=== PATIENT | female | born 1980 | race African-American/Black ===

== ENCOUNTER 2017-09-07 17:10 | Emergency (ER) | payer MEDICARE, MEDICAID ==
--- NOTE | 2017-09-07 20:08 | RAD ---
EXAM: CHEST TWO VIEWS 09/07/17 HISTORY: Dyspnea. COMPARISON: None. FINDINGS: Two views chest: Normal cardiac silhouette. The pulmonary vessels and hilum are normal. Costophrenic angles are clear. No mass. No consolidation. No pneumothorax or osseous abnormalities. IMPRESSION: No acute cardiopulmonary process. POS: [facility]
== END 2017-09-07 19:49 | disposition left against medical advice (07) ==
LOC: ERS 17:10
DX: R06.02 Shortness of breath (principal); R05 Cough; J45.909 Unspecified asthma, uncomplicated; Z79.899 Other long term (current) drug therapy; Z79.01 Long term (current) use of anticoagulants
CPT/HCPCS: 71020; 99284

== ENCOUNTER 2018-06-13 21:31 | Observation (INO) | payer MEDICARE, MEDICAID ==
[~2018-06-13 21:31] MED LIST: ISOVUE-370 76%-LOCM 1 ML ONE
[2018-06-13 22:10] LABS: #Basophils 0.1 thou/uL (0.0-0.2); #Eosinphils 0.2 thou/uL (0.0-0.7); #Monocytes 0.5 thou/uL (0.11-0.59); %Basophils 0.8 % (0.0-1.0); %Eosinophils 1.6 % (0.0-10.0); %Lymphocytes 40.8 % (21.0-51.0); %Monocytes 5.2 % (0.0-10.0); %Neutrophils 51.6 % (42.0-75.0); Hemoglobin 12.4 g/dL (12.0-16.0); Mean Corpuscular HGB CONC 34.7 g/dL (32.0-36.0); Mean Corpuscular Hemoglobin 31.3 pg (27.0-31.0); Mean Corpuscular Volume 90.2 fL (78.0-98.0); Mean Platelet Volume 6.7 fL (7.4-10.4); Platelet Count 584 thou/uL (130-400); RBC Distribution Width 14.6 % (11.5-14.5); Red Blood Cell (RBC) Count 3.96 mill/uL (4.20-5.40); White Blood Cell (WBC) Count 9.7 thou/uL (4.8-10.8)
[2018-06-13 22:37] LABS: ALT (SGPT) 21 U/L (8-55); AST (SGOT) 22 U/L (5-34); Alkaline Phosphatase 84 U/L (40-150); Anion Gap 13 mmol/L (10-20); BUN (Urea Nitrogen) 4 mg/dL (7.0-18.7); Bilirubin, Total 0.5 mg/dL (0.2-1.2); Calc. Creatinine Clearance 0 mL/min (70-130); Calcium 9.3 mg/dL (7.8-10.44); Carbon Dioxide 26 mmol/L (22-29); Chloride 102 mmol/L (98-107); Estimated GFR-MDRD 90; Globulin 3.7 g/dL (2.4-3.5); Glucose 113 mg/dL (70-105); Potassium 3.3 mmol/L (3.5-5.1); Protein, Total 7.7 g/dL (6.0-8.3); Sodium 138 mmol/L (136-145)
[2018-06-13 22:41] LABS: CKMB 0.4 ng/mL (0-6.6); Troponin I Less than 0.010 ng/mL (< 0.028)
--- NOTE | 2018-06-13 22:59 | RAD ---
SINGLE VIEW CHEST: HISTORY: Shortness of breath. History of DVT and pulmonary embolism. COMPARISON: 12/01/2014 FINDINGS: Single view of the chest show normal sized cardiomediastinal silhouette. There is no evidence of cons olidation, mass, or pleural effusion. The bones are unremarkable. IMPRESSION: No evidence of acute cardiopulmonary disease. POS: [facility]
[2018-06-13] MEDS ORDERED: Morphine 4 MG/ML VIAL ONE (23:52)
[2018-06-14] MEDS ORDERED: HYDROcodone/Acetaminophen 5/325 mg Tablet ONE ×2 (02:36→09:12)
[2018-06-14] MEDS ORDERED: Nitroglycerin 0.4 MG TAB (25 Tab Bottle) ONE (02:37)
[2018-06-14 03:21] LABS: Troponin I Less than 0.010 ng/mL (< 0.028)
[2018-06-14] MEDS ORDERED: Acetaminophen 325 MG TAB PO PRN (03:51)
[2018-06-14] MEDS ORDERED: Ondansetron HCl/PF 4 MG/2 ML Vial IVP PRN (03:51)
[2018-06-14] MEDS ORDERED: Ondansetron ODT 4 MG TAB SL PRN (03:51)
[2018-06-14 03:54] VITALS: BMI 51.9
[2018-06-14 06:05] LABS: Troponin I Less than 0.010 ng/mL (< 0.028)
[2018-06-14] MEDS ORDERED: Enoxaparin Sodium 30 MG/0.3 ML SYRINGE ONE (09:12)
[2018-06-14] MEDS ORDERED: Enoxaparin Sodium 120 MG/0.8 ML SYRINGE SC ONE (09:12)
[2018-06-14] MEDS: Citalopram 20 MG TAB PO SCH (09:30)
[2018-06-14] MEDS ORDERED: Aspirin 325 MG TAB ONE (10:10)
[2018-06-14] MEDS ORDERED: HYDROcodone/Acetaminophen 5/325 mg Tablet PO PRN ×2 (10:51→11:18)
[2018-06-14] MEDS ORDERED: Enoxaparin Sodium 80 MG/0.8 ML SYRINGE SC SCH (11:00)
--- NOTE | 2018-06-14 11:23 | HP ---
PRIMARY CARE PROVIDER: None. CHIEF COMPLAINT: Chest pain. HISTORY OF PRESENT ILLNESS: Ms. Bruno is a pleasant 38-year-old lady who was seen at [facility] on 06/14/2018. Please note that the computer systems are down at this point. I am only able to access some of the l abs. Ms. Bruno reports that she has been having chest pain over her right lower chest. She describes it as a band-like, over her lower chest and upper abdomen, accompanied by abdominal distention over the last 4 days. She reports that the pain is worse with deep breathing, exertion as well as with eating . She reports having similar pain when she had a pulmonary embolism in the past. The pain itself is a pressure-like sensation, 4-5/10. She denies any nausea, vomiting or diarrhea. REVIEW OF SYSTEMS: All other systems reviewed and found to be negative. PAST MEDICAL HISTORY: Significant for asthma; pulmonary embolism; noncancerous stomach mass, status post surgery; small benign renal mass, status post embolization; deep vein thrombosis which was unpro voked. PAST SURGICAL HISTORY: Significant for hysterectomy and IVC filter placement. PSYCHIATRIC HISTORY: Anxiety. SOCIAL HISTORY: No history of tobacco use, alcohol use or recreational drug use. FAMILY HISTORY: Significant for coronary artery disease. ALLERGIES: PENICILLIN. CURRENT MEDICATIONS: Lovenox 150 mg subcutaneously 2 times a day, she reports that her pulmonary emb olism specialist was thinking about increasing the dose, citalopram 20 mg daily, amitriptyline 75 mg at bedtime, and albuterol inhaler p.r.n. PHYSICAL EXAMINATION: GENERAL: Ms. Bruno is awake and alert, not in acute distress. She is obese. VITAL SIGNS: Blood pressure is 137/66, pulse 70, respiratory 20, and oxygen saturation 96% on room a ir. She is afebrile. EYES: No scleral icterus. No conjunctival pallor. ENT: Moist mucosal membranes, no oropharyngeal erythema or exudates. NECK: Supple, nontender, trachea is midline. RESPIRATORY: Accessory muscles of breathing are not active. Chest wall movements are symmetric bila terally. LUNGS: Clear to auscultation without wheeze, rhonchi or crepitations. CARDIOVASCULAR: S1 and S2 are heard, regular. Peripheral pulses palpable. No carotid bruit, no per icardial rub. ABDOMEN: Soft, distended, mild right upper quadrant tenderness, no guarding or rigidity, bowel sound s heard, no hepatomegaly, no splenomegaly. Dunbar's sign is negative. NEUROLOGIC: Cranial nerves II through XII intact. Deep tendon reflexes are 2+. MUSCULOSKELETAL: Power is 5/5 in all 4 extremities. LYMPHATIC: No cervical lymphadenopathy. PSYCHIATRIC: Normal mood, normal affect, patient is oriented to person, place, and time. LABORATORY DATA: Ms. Bruno's labs and investigations were reviewed. She had right upper quadrant u ltrasound, which showed minimal gallbladder sludge, but no visible calculi and a negative sonographic Dunbar's sign. She also had a CT angiography of the chest which showed a very small left pleural ef fusion. There was minimal IV contrast opacification of the pulmonary arteries and therefore nondiagn ostic evaluation for acute pulmonary embolism. She has a normal sodium, normal potassium, normal cre atinine, normal total bilirubin, normal alkaline phosphatase, normal AST and normal ALT. ASSESSMENT AND PLAN: Ms. Bruno is a pleasant 38-year-old lady who was seen at [facility] on 06/14/2018. Her problem list includes: 1. Chest pain: Differential diagnosis remains wide and includes pulmonary etiology as well as a car diac etiology and upper abdominal etiology. She will be admitted to the hospital for telemetry monit oring. I will obtain a nuclear stress test. If this is negative, consideration may be given to repe ating a CT angiogram to rule out pulmonary embolism. She is already on treatment for pulmonary embol ism at this time with therapeutic Lovenox dose, which is why I am opting to do nuclear stress test fi rst. 2. Asthma: Appears to be stable. 3. History of pulmonary embolism: Continue Lovenox at a therapeutic dose. 4. History of anxiety: Continue citalopram and amitriptyline. LEVEL OF RISK: Moderate. LEVEL OF COMPLEXITY: Moderate.
--- NOTE | 2018-06-14 11:37 | ULT ---
PRELIMINARY REPORT/[facility]/EMERGENTY AFTER-HOURS PROCEDURE US Abdomen Limited, Right Upper Quadrant EXAM DATE/TIME: 06/14/2018 12:03 AM CLINICAL HISTORY: 38 years old, female; Pain; Abdominal pain; Localized; Right upper quadrant (ruq) TECHNIQUE: Real-time ultrasound of the abdomen with image documentation. Examination is focused on the right upper quadrant. COMPARISON: No relevant prior studies available. FINDINGS: Liver: The hepatic parenchyma is echogenic consistent with diffuse fatty liver and there is hepatomeg elise with liver length 22.4 cm. Gallbladder: There is minimal gallbladder sludge but no visible calculi, no abnormal gallbladder wall thickening and negative sonographic Dunbar sign. Common bile duct: Normal. No stones. No dilation. Pancreas: The pancreas is partially obscured by overlying bowel gas. Right kidney: Normal. No mass. No hydronephrosis. IMPRESSION: No acute sonographic pathology. Thank you for allowing us to participate in the care of your patient. Dictated and Authenticated by: Anuel Seth MD 06/14/2018 1:29 AM Central Time (US & En) FINAL REPORT GALLBLADDER ULTRASOUND: HISTORY: Right upper quadrant pain. COMPARISON: None. TECHNIQUE: Utilizing a Multi-Hertz transducer, sonographic imaging of the right upper quadrant is performed in t he longitudinal and transverse plane. FINDINGS: There is increased echogenicity of the liver, likely due to hepatic steatosis or hepatocellular disea se. There is mild hepatomegaly. There is sludge in the gallbladder. No sonographic evidence of cho lelithiasis or cholecystitis. This report is in agreement with the preliminary report by [facility]. POS: [facility]
--- NOTE | 2018-06-14 11:48 | CT ---
PRELIMINARY REPORT/[facility]/EMERGENTY AFTER-HOURS PROCEDURE CT Angiography Chest With Intravenous Contrast EXAM DATE/TIME: 06/14/2018 12:24 AM CLINICAL HISTORY: 38 years old, female; Pain; Chest pain; Patient HX: Er 1; PT reports SOB. Reports HX of dvt that ashley eled/pe. January 2017. Ivc filter in lungs TECHNIQUE: Axial computed tomographic angiography images of the chest with intravenous contrast using CT angiogr aphy protocol. Coronal reformatted images were created and reviewed. MIP reconstructed images were created and reviewed. COMPARISON: No relevant prior studies available. FINDINGS: Pulmonary arteries: There is minimal IV contrast opacification of the pulmonary arteries and therefor e nondiagnostic evaluation for acute pulmonary embolism. Aorta: Normal. No aortic aneurysm. No aortic dissection. Lungs: There is mild bibasilar atelectatic change or scarring. Pleural space: There is a very small left pleural effusion. Heart: Normal. No cardiomegaly. No pericardial effusion. Bones/joints: There are mild degenerative changes of the spine. Soft tissues: Unremarkable. Lymph nodes: Unremarkable. No enlarged lymph nodes. IMPRESSION: 1. There is a very small left pleural effusion. 2. There is minimal IV contrast opacification of the pulmonary arteries and therefore nondiagnostic e valuation for acute pulmonary embolism. Thank you for allowing us to participate in the care of your patient. Dictated and Authenticated by: Anuel Seth MD 06/14/2018 1:27 AM Central Time (US & En) EMERGENT AFTER HOURS CT ANGIOGRAM THORAX WITH IV CONTRAST AND 3D RECONSTRUCTION: 06/14/2018 HISTORY: Shortness of breath and chest pain. History of prior DVT. COMPARISON: None available. IMPRESSION: 1. Suboptimal opacification of the pulmonary arteries, related to suboptimal timing of the contrast bolus. As a result, pulmonary embolus cannot be excluded based on this examination. 2. The thoracic aorta is normal in caliber without evidence of an aortic dissection. 3. Very small left pleural effusion. 4. Pleural-based nodular density along the minor fissure on the right, measuring approximately 4 to 5 mm, likely related to a small focal area of nodular pleural thickening. There is a tiny, less than 5 mm, pleural based, nodular density at the anterior aspect of the left upper lobe. There is a smal l pulmonary nodule at the lateral aspect of the left upper lobe, measuring 4 mm. 5. There is linear atelectasis versus scarring at the left lung base. The findings are in agreement with the preliminary report by [facility]. POS: [facility]
[2018-06-14 15:04] LABS: #Eosinphils 0.2 thou/uL (0.0-0.7); #Lymphocytes 3.2 thou/uL (1.20-3.40); #Monocytes 0.4 thou/uL (0.11-0.59); #Neutrophils 4.4 thou/uL (1.40-6.50); %Basophils 0.5 % (0.0-1.0); %Eosinophils 2.6 % (0.0-10.0); %Lymphocytes 38.9 % (21.0-51.0); %Neutrophils 53.1 % (42.0-75.0); Hemoglobin 12.1 g/dL (12.0-16.0); Mean Corpuscular HGB CONC 33.1 g/dL (32.0-36.0); Mean Corpuscular Volume 90.4 fL (78.0-98.0); Mean Platelet Volume 6.4 fL (7.4-10.4); Platelet Count 560 thou/uL (130-400); RBC Distribution Width 14.6 % (11.5-14.5); Red Blood Cell (RBC) Count 4.05 mill/uL (4.20-5.40); White Blood Cell (WBC) Count 8.2 thou/uL (4.8-10.8)
--- NOTE | 2018-06-14 15:15 | NM ---
RADIONUCLIDE STRESS ONLY MYOCARDIAL PERFUSION SCAN WITH CT ATTENUATION CORRECTION AND SPECT IMAGING W ITH LEFT VENTRICULAR WALL MOTION EVALUATION AND EJECTION FRACTION: HISTORY: Chest pain. FINDINGS: Lexiscan protocol. Heterogeneous uptake of radiotracer throughout the left ventricular myocardium. No focal perfusion de fect is apparent. QGS analysis of gated SPECT images shows no focal wall motion abnormalities. Ejection fraction is niyah culated at 65%. IMPRESSION: 1. Normal myocardial perfusion stress only exam. 2. Normal LVEF. POS: [facility]
[2018-06-14] MEDS ORDERED: Regadenoson 0.4 MG/5 ML SYRINGE ONE (15:21)
[2018-06-14 15:24] LABS: Anion Gap 12 mmol/L (10-20); BUN (Urea Nitrogen) 5 mg/dL (7.0-18.7); Calc. Creatinine Clearance 209 mL/min (70-130); Calcium 9.1 mg/dL (7.8-10.44); Carbon Dioxide 26 mmol/L (22-29); Chloride 106 mmol/L (98-107); Estimated GFR-MDRD Greater than 90; Glucose 137 mg/dL (70-105); Potassium 3.5 mmol/L (3.5-5.1); Sodium 140 mmol/L (136-145)
[2018-06-14] MEDS: Sodium Chloride 0.9% 1,000 ML IV SCH (16:23)
[2018-06-14 17:32] LABS: Hemoglobin 12.1 g/dL (12.0-16.0); Platelet Count 538 thou/uL (130-400)
[2018-06-14 17:53] LABS: Calc. Creatinine Clearance 223 mL/min (70-130); Estimated GFR-MDRD Greater than 90
[2018-06-14] MEDS: Enoxaparin Sodium 80 MG/0.8 ML SYRINGE SC SCH (20:22)
[2018-06-14] MEDS ORDERED: Enoxaparin Sodium 100 MG/ML SYRINGE SC SCH (21:00)
[2018-06-14] MEDS ORDERED: Enoxaparin Sodium 60 MG/0.6 ML SYRINGE SC SCH (21:00)
[2018-06-14] MEDS ORDERED: Amitriptyline HCl 25 MG TAB PO SCH (21:00)
[2018-06-15] MEDS: Sodium Chloride 0.9% 1,000 ML IV SCH (03:49)
[2018-06-15 04:52] LABS: Anion Gap 11 mmol/L (10-20); BUN (Urea Nitrogen) 5 mg/dL (7.0-18.7); Calc. Creatinine Clearance 207 mL/min (70-130); Calcium 8.5 mg/dL (7.8-10.44); Carbon Dioxide 27 mmol/L (22-29); Chloride 108 mmol/L (98-107); Estimated GFR-MDRD Greater than 90; Glucose 135 mg/dL (70-105); Potassium 3.9 mmol/L (3.5-5.1); Sodium 142 mmol/L (136-145)
[2018-06-15 05:23] LABS: Band 3 % (5-11); Eosinophils 3 % (0-10); Hemoglobin 11.9 g/dL (12.0-16.0); Lymphocytes 38 % (21-51); MDiff Complete? YES; Mean Corpuscular HGB CONC 34.3 g/dL (32.0-36.0); Mean Corpuscular Hemoglobin 30.7 pg (27.0-31.0); Mean Corpuscular Volume 89.7 fL (78.0-98.0); Mean Platelet Volume 6.7 fL (7.4-10.4); Monocytes 6 % (0-10); Neutrophil 50 % (42-75); PLT Morphology Comment Appears Increased; Platelet Count 472 thou/uL (130-400); RBC Distribution Width 14.4 % (11.5-14.5); Red Blood Cell (RBC) Count 3.88 mill/uL (4.20-5.40); White Blood Cell (WBC) Count 7.6 thou/uL (4.8-10.8)
[2018-06-15 08:09] VITALS: BP 123/69; TEMP 97.8
[2018-06-15] MEDS ORDERED: Citalopram 20 MG TAB PO SCH (09:00)
[2018-06-15] MEDS ORDERED: Aspirin 325 MG TAB PO SCH ×2 (09:00)
[2018-06-15] MEDS: Citalopram 20 MG TAB PO SCH (09:36)
[2018-06-15] MEDS: Enoxaparin Sodium 80 MG/0.8 ML SYRINGE SC SCH (09:36)
--- NOTE | 2018-06-15 14:09 | DIS ---
DISCHARGE DISPOSITION: Home. FOLLOWUP: 1. Follow up with primary oncologist, Dr. Hesham Glass today at 1:00 p.m. 2. Follow up with primary care physician at [facility], Dr. Alcala in 1 week. ALLERGIES: The patient is allergic to PENICILLIN. DISCHARGE MEDICATIONS: Same as admission medications: 1. Lovenox 150 mg twice a day. 2. Albuterol inhaler as needed. BRIEF HOSPITAL COURSE: The patient is a 38-year-old female with recurrent pulmonary embolism on anti coagulation, who presented to the emergency room with chest discomfort. Please refer to the history and physical for further details. The patient was admitted to the hospital with a diagnosis of chest discomfort, rule out acute coronar y syndrome. Serial troponins remained negative. She underwent a Cardiolite stress test that was neg ative. There were no wall motion abnormalities. Ejection fraction was 65%. CT angiogram of the obdulia st was attempted; however, due to poor contrast bolus timing, it was suboptimal. Due to lack of IV a ccess this could not be done today. She will continue Lovenox. She will see her primary oncologist later today to make a decision whether the patient needs a CTA or not. She is on full dose Lovenox. Chest x-ray was negative. She also underwent abdominal ultrasound that was negative for acute findi ngs. There was no gallbladder wall thickening. There was minimal gallbladder sludge without any vis ible calculi. Plan of care was discussed with the patient in detail. She stated understanding. DISCHARGE DIAGNOSES: 1. Atypical chest discomfort, probably musculoskeletal. 2. Negative Cardiolite stress test. 3. History of pulmonary embolism on full dose anticoagulation. 4. Mild intermittent asthma. 5. Morbid obesity with a BMI 51.9. 6. Hypokalemia, corrected. 7. PENICILLIN allergy. The patient was seen and examined on the day of discharge.
--- NOTE | 2018-06-24 09:28 | STRESS ---
Acquisition Time: 2018-06-14 12:20:28 Total Exercise Time: 00:01:00 Test Indications: CHEST PAIN Medications: Protocol: LEXISCAN Max HR: 116 BPM 64% of Pred: 181 BPM Max BP: 132/074 mmHG Max Work Load: 1.0 METS THE PATIENT WAS INJECTED WITH LEXISCAN. SHE DID NOT DEVELOP CHEST PAIN. THERE WAS NO SIGNIFICANT ST DEPRESSION. AWAIT NUCLEAR IMAGES FOR DEFINITIVE DIAGNOSIS. Confirmed by CATRACHO MARTINEZ ([id number]), staff editor TJ MCNAIR ([id number]) on 06/24/2018 9:28:31 AM Referred By: MD Mariana MATHEWS Confirmed By:CATRACHO MARTINEZ
== END 2018-06-15 10:46 | disposition home or self-care (01) ==
LOC: ERS 21:31 → 2SW 06-14 03:45
PROVIDERS: ADMIT Internal Medicine; ATTEND Internal Medicine
DX: R07.89 Other chest pain (principal); Z86.711 Personal history of pulmonary embolism; J45.20 Mild intermittent asthma, uncomplicated; E66.01 Morbid (severe) obesity due to excess calories; Z68.43 Body mass index [BMI] 50.0-59.9, adult; E87.6 Hypokalemia; Z88.0 Allergy status to penicillin; Z79.899 Other long term (current) drug therapy
CPT/HCPCS: 71045; 71275; 76705; 78452; 80048 ×2; 80053; 82553; 82565; 84484 ×3; 85014; 85018; 85025 ×3; 85049; 93005; 93017; 94760; 96361 ×3; 96372 ×2; 96374; 99285; G0378 ×2; 36415; A4216; J1650; J2270; J2785; Q0162

== ENCOUNTER 2018-06-28 16:12 | Emergency (ER) | payer MEDICARE, MEDICAID ==
[2018-06-28] MEDS ORDERED: diphenhydrAMINE 12.5 MG/5 ML UDCUP ONE ×2 (17:51→17:57)
[2018-06-28] MEDS ORDERED: Metoclopramide HCl 10 MG/2 ML VIAL ONE (17:51)
--- NOTE | 2018-06-28 18:23 | CT ---
NONCONTRAST HEAD CT: 06/28/18 HISTORY: Headache. Patient denies past medical history of migraine headaches. COMPARISON: None. FINDINGS: No parenchymal hemorrhage. No extra-axial hematoma. No midline shift. Basilar cisterns are patent. Br ain volume, age appropriate. Cortical morales-white matter differentiation is preserved. Ventricles and sulci are patent and symmetric. Note is made of a cavum septum pellucidum. Calvarium is intact. Adequate aeration of the sinuses and mastoid air cells. IMPRESSION: No acute intracranial process. POS: [facility]
[2018-06-28] MEDS ORDERED: Acetaminophen 500 MG TAB ONE (18:37)
== END 2018-06-28 19:18 | disposition home or self-care (01) ==
LOC: ERS 16:12
DX: R51 Headache (principal); F41.9 Anxiety disorder, unspecified; J45.909 Unspecified asthma, uncomplicated; Z86.711 Personal history of pulmonary embolism; Z79.899 Other long term (current) drug therapy
CPT/HCPCS: 70450; 96365; J2765

== ENCOUNTER 2018-08-21 16:28 | Emergency (ER) | payer MEDICARE, MEDICAID | END 2018-08-21 17:00 | disposition home or self-care (01) | LOC: ERS 16:28 | DX: S60.562A Insect bite (nonvenomous) of left hand, initial encounter (principal); S60.561A Insect bite (nonvenomous) of right hand, initial encounter; I10 Essential (primary) hypertension; J45.909 Unspecified asthma, uncomplicated; G43.909 Migraine, unspecified, not intractable, without status migrainosus; F41.9 Anxiety disorder, unspecified; W57.XXXA Bitten or stung by nonvenomous insect and other nonvenomous arthropods, initial encounter | CPT/HCPCS: 99282 ==

== ENCOUNTER 2018-08-23 03:26 | Emergency (ER) | payer MEDICARE, MEDICAID ==
[2018-08-23 05:05] LABS: BHCG - Serum Negative (NEGATIVE); Pregs Control Background? CLEAR/WHITE (CLR/WHITE); Pregs Control Bar Appear? YES (CONTROL BAR)
[2018-08-23 05:11] LABS: Hemoglobin 12.6 g/dL (12.0-16.0); Mean Corpuscular HGB CONC 32.1 g/dL (32.0-36.0); Mean Corpuscular Hemoglobin 29.5 pg (27.0-31.0); Mean Corpuscular Volume 92.1 fL (78.0-98.0); Mean Platelet Volume 6.7 fL (7.4-10.4); Platelet Count 600 thou/uL (130-400); RBC Distribution Width 14.6 % (11.5-14.5); Red Blood Cell (RBC) Count 4.25 mill/uL (4.20-5.40); White Blood Cell (WBC) Count 11.5 thou/uL (4.8-10.8)
[2018-08-23 05:15] LABS: ALT (SGPT) 18 U/L (8-55); AST (SGOT) 18 U/L (5-34); Albumin 4.1 g/dL (3.5-5.0); Alkaline Phosphatase 84 U/L (40-150); Anion Gap 15 mmol/L (10-20); BUN (Urea Nitrogen) 5 mg/dL (7.0-18.7); Bilirubin, Total 0.6 mg/dL (0.2-1.2); CK (CPK) 96 U/L (29-168); Calc. Creatinine Clearance 0 mL/min (70-130); Calcium 9.6 mg/dL (7.8-10.44); Carbon Dioxide 27 mmol/L (22-29); Chloride 101 mmol/L (98-107); Estimated GFR-MDRD 82; Globulin 4.1 g/dL (2.4-3.5); Glucose 128 mg/dL (70-105); Potassium 4.1 mmol/L (3.5-5.1); Protein, Total 8.2 g/dL (6.0-8.3); Sodium 139 mmol/L (136-145)
[2018-08-23 05:18] LABS: CKMB 0.4 ng/mL (0-6.6); Troponin I Less than 0.010 ng/mL (< 0.028)
[2018-08-23 05:32] LABS: Eosinophils 2 % (0-10); Lymphocytes 41 % (21-51); MDiff Complete? YES; Metamyelocyte 1 % (0-0); Monocytes 5 % (0-10); Neutrophil 51 % (42-75); PLT Morphology Comment Appears Increased
--- NOTE | 2018-08-23 08:16 | CT ---
PRELIMINARY REPORT/[facility]/EMERGENTY AFTER-HOURS PROCEDURE CT Angiography Chest With Intravenous Contrast EXAM DATE/TIME: 08/23/2018 5:12 AM CLINICAL HISTORY: 38 years old, female; Signs and symptoms; Cough; Patient HX: 38 yo f presents to ed with fever. PT re ports fever of 102 for the past 3 days at home, with associated cough, green sputum, chills, and gene ral malaise. PT reports she is currently on an anticoagulant, PT has HX of pes while on anticoagulants. TECHNIQUE: Axial computed tomographic angiography images of the chest with intravenous contrast using CT angiogr aphy protocol. Coronal reformatted images were created and reviewed. MIP reconstructed images were created and reviewed. COMPARISON: No relevant prior studies available. FINDINGS: Pulmonary arteries: The pulmonary arteries are not enlarged. No evidence of acute pulmonary embolus. Aorta: The aorta is normal. Lungs: There is LEFT basilar atelectasis. Pleural space: Normal. No pneumothorax. No pleural effusion. Heart: The cardiac structures are normal. Thyroid: The visualized thyroid gland is unremarkable. Bones/joints: Unremarkable. No acute fracture. Soft tissues: Unremarkable. Lymph nodes: Unremarkable. No enlarged lymph nodes. IMPRESSION: No acute thoracic pathology. Mild LEFT basilar atelectasis. No CT evidence for acute pulmonary embolus. Thank you for allowing us to participate in the care of your patient. Dictated and Authenticated by: Mark Cornell MD 08/23/2018 5:26 AM Central Time (US & En) FINAL REPORT CT PULMONARY ANGIOGRAM WITH IV CONTRAST AND 3D POSTPROCESSING: I agree with the preliminary report given by Dr. Mark Cornell. POS: [facility]
[2018-08-23] MEDS ORDERED: ISOVUE-370 76%-LOCM 1 ML ONE (11:41)
== END 2018-08-23 05:30 | disposition home or self-care (01) ==
LOC: ERS 03:26
DX: J40 Bronchitis, not specified as acute or chronic (principal); G43.909 Migraine, unspecified, not intractable, without status migrainosus; F41.9 Anxiety disorder, unspecified; I10 Essential (primary) hypertension; Z79.899 Other long term (current) drug therapy; Z86.711 Personal history of pulmonary embolism
CPT/HCPCS: 71275; 80053; 82553; 84484; 84703; 85025; 87804; 93005

== ENCOUNTER 2018-11-17 13:11 | Emergency (ER) | payer MEDICARE, MEDICAID ==
[2018-11-17] MEDS ORDERED: Ondansetron ODT 4 MG TAB ONE (13:49)
[2018-11-17] MEDS ORDERED: Dexamethasone 4 mg/ml Vial ONE (13:59)
[2018-11-17] MEDS ORDERED: Ibuprofen 200 MG TAB ONE (13:59)
== END 2018-11-17 15:00 | disposition home or self-care (01) ==
LOC: ERS 13:11
DX: J11.1 Influenza due to unidentified influenza virus with other respiratory manifestations (principal); J45.901 Unspecified asthma with (acute) exacerbation; R11.2 Nausea with vomiting, unspecified; I10 Essential (primary) hypertension; G43.909 Migraine, unspecified, not intractable, without status migrainosus; F41.9 Anxiety disorder, unspecified; Z86.711 Personal history of pulmonary embolism; Z79.899 Other long term (current) drug therapy; Z79.51 Long term (current) use of inhaled steroids
CPT/HCPCS: 94640; J1100; J7620; Q0162

== ENCOUNTER 2019-01-21 01:15 | Emergency (ER) | payer MEDICARE, MEDICAID ==
--- NOTE | 2019-01-21 08:37 | ULT ---
PRELIMINARY REPORT: US Duplex Left Lower Extremity Veins, Limited EXAM DATE/TIME: 01/21/2019 2:30 AM CLINICAL HISTORY: 38 years old, female; Other: Lle pain, swelling x 1mo- per PT. TECHNIQUE: Imaging protocol: Real-time Duplex ultrasound of the Left Lower Extremity with 2-D morales scale, color Doppler flow and spectral waveform analysis. Limited exam focused on the left lower extremity veins. COMPARISON: No relevant prior studies available. FINDINGS: Left deep veins: Unremarkable. The common femoral, femoral, proximal profunda femoral and popliteal veins are patent without thrombus. Normal Doppler waveforms. Normal compressibility and/or augmentation response. Left superficial veins: Unremarkable. Saphenofemoral junction is patent without thrombus. Soft tissues: At the site of palpable abnormality in the mid thigh there is a 1.4 cm avascular hypoechoic structure/collection which is most likely a hematoma or abscess. IMPRESSION: 1. No DVT. 2. At the site of palpable abnormality in the mid thigh there is a 1.4 cm avascular hypoechoic structure/collection which is most likely a hematoma or abscess. Thank you for allowing us to participate in the care of your patient. Dictated and Authenticated by: Sundar Hardin MD 01/21/2019 3:07 AM Central Time (US & En) Emergency after-hours left lower extremity venous Doppler with spectral analysis and color flow evalu ation: HISTORY: Left lower extremity pain. History of prior pulmonary embolus and DVT. Swelling left lower e xtremity. IMPRESSION: 1. No evidence of a DVT involving the visualized deep venous structures left lower extremity. 2. At site of patient's palpable abnormality at the level of the mid thigh, there is a 1.4 cm hypoech oic structure/collection which does not demonstrate flow on color flow evaluation. This may represent a focal hematoma, but abscess cannot be entirely excluded. Clinical correlation is recommen ded and follow-up evaluation is suggested to ensure resolution of this structure. 3. Findings are in agreement with the preliminary report by [facility]. Code QA Transcribed Date/Time: 01/21/2019 8:40 AM
== END 2019-01-21 03:17 | disposition home or self-care (01) ==
LOC: ERS 01:15
DX: D17.24 Benign lipomatous neoplasm of skin and subcutaneous tissue of left leg (principal); I10 Essential (primary) hypertension; F41.9 Anxiety disorder, unspecified; Z79.899 Other long term (current) drug therapy

== ENCOUNTER 2019-06-15 23:12 | Emergency (ER) | payer MEDICARE, OTHER ==
[2019-06-15 23:35] LABS: Bacteria/HPF 1+ HPF (None Seen); Bilirubin Negative (Negative); Blood, Urine Trace (Negative); Clarity Clear (Clear); Glucose, Urine (Dipstick) Normal (Negative); Leukocyte Negative Leu/uL (Negative); Nitrite Negative (Negative); Protein, Urine (Dipstick) Negative (Neg-Trace); RBC/HPF 0-3 HPF (0-3); Squamous Epithelial 0-3 HPF (0-3); Urobilinogen Normal mg/dL (Less than 2); WBC/HPF 0-3 HPF (0-3)
[2019-06-15 23:36] LABS: #Basophils 0.1 thou/uL (0.0-0.2); #Eosinphils 0.2 thou/uL (0.0-0.7); #Lymphocytes 4.4 thou/uL (1.20-3.40); #Monocytes 0.6 thou/uL (0.11-0.59); #Neutrophils 4.7 thou/uL (1.40-6.50); %Basophils 0.6 % (0.0-1.0); %Eosinophils 2.1 % (0.0-10.0); %Lymphocytes 44.1 % (21.0-51.0); %Monocytes 5.9 % (0.0-10.0); %Neutrophils 47.3 % (42.0-75.0); Hemoglobin 11.6 g/dL (12.0-16.0); Mean Corpuscular HGB CONC 34.4 g/dL (32.0-36.0); Mean Corpuscular Hemoglobin 33.6 pg (27.0-31.0); Mean Corpuscular Volume 97.6 fL (78.0-98.0); Mean Platelet Volume 6.7 fL (7.4-10.4); Platelet Count 508 thou/uL (130-400); RBC Distribution Width 15.1 % (11.5-14.5); Red Blood Cell (RBC) Count 3.46 mill/uL (4.20-5.40)
[2019-06-15 23:36] LABS: Pregnancy Test - Urine (BHCG) Negative (Negative); Pregu Control Background? CLEAR/WHITE (CLR/WHITE); Pregu Control Bar Appear? YES (CONTROL BAR); Specific Gravity 1.005 (1.002-1.036)
[2019-06-15 23:57] LABS: ALT (SGPT) 16 U/L (8-55); AST (SGOT) 19 U/L (5-34); Alkaline Phosphatase 88 U/L (40-150); Anion Gap 11 mmol/L (10-20); BUN (Urea Nitrogen) 8 mg/dL (7.0-18.7); Bilirubin, Total 0.3 mg/dL (0.2-1.2); Calc. Creatinine Clearance 0 mL/min (70-130); Calcium 9.2 mg/dL (7.8-10.44); Carbon Dioxide 27 mmol/L (22-29); Chloride 102 mmol/L (98-107); Estimated GFR-MDRD 77; Globulin 3.4 g/dL (2.4-3.5); Glucose 131 mg/dL (70-105); Lipase 73 U/L (8-78); Potassium 3.2 mmol/L (3.5-5.1); Protein, Total 7.4 g/dL (6.0-8.3); Sodium 137 mmol/L (136-145)
[2019-06-16] MEDS ORDERED: Morphine 4 MG/ML VIAL ONE (03:21)
[2019-06-16] MEDS ORDERED: Ondansetron PF 4 MG/2 ML Vial ONE (03:22)
[2019-06-16] MEDS ORDERED: Potassium Chloride 20 MEQ TAB ONE (06:12)
--- NOTE | 2019-06-16 08:33 | CT ---
PRELIMINARY REPORT/[facility]/EMERGENCY AFTER HOURS PROCEDURE: EXAM: CT Abdomen and Pelvis With Contrast EXAM DATE/TIME: 06/16/2019 1:52 AM CLINICAL HISTORY: 39 years old, female; Abdominal pain; Acute; Patient HX: Abd pain ruq, seen yesterday at [facility] [place] [facility] gallstones TECHNIQUE: Imaging protocol: Computed tomography of the abdomen and pelvis with intravenous contrast. COMPARISON: No relevant prior studies available. FINDINGS: Left pleural effusion is small. Liver: Hepatomegally. No mass. Gallbladder and bile ducts: No calcified stones. No ductal dilation. Pancreas: Unremarkable. Spleen: No splenomegaly. Adrenals: No mass. Kidneys and ureters: No hydronephrosis. A fat attenuation 7.2 x 6.1 cm mildly heterogeneous fat densi ty mass associated to a subtle inferior right renal cortical defect ("notch" sign) indicating its michelle al origin is compatible with an angiomyolipoma. Stomach and bowel: Unremarkable. Appendix: No evidence of appendicitis. Intraperitoneal space: Unremarkable. Vasculature: IVC filter is in place. No abdominal aortic aneurysm. Lymph nodes: Nonspecific retroperitoneal lymph nodes are shooty. Bladder: Unremarkable as visualized. Reproductive: Hysterectomy changes. Bones/joints: No acute fracture. Soft tissues: Nonspecific inferior anterior abdominal wall subcutaneous stranding. IMPRESSION: Left pleural effusion is small. A fat attenuation 7.2 x 6.1 cm mildly heterogeneous fat density mass associated to a subtle inferior right renal cortical defect ("notch" sign) indicating its renal origin is compatible with an angiomy olipoma. IVC filter is in place. Thank you for allowing us to participate in the care of your patient. Dictated and Authenticated by: Kaylie Montez MD 06/16/2019 3:40 AM Central Time (US & En) FINAL REPORT CT ABDOMEN AND PELVIS WITH CONTRAT: Date: 06/16/19 No prior comparison. FINDINGS/IMPRESSION: Final report is in agree with the above provided preliminary interpretation from [facility]. Predominantly fat density mass which communicates with the lower pole of the right kidney, therefore favoring a large angiomyolipoma. Correlation with prior imaging, if available, would be helpful to co nfirm stability. Otherwise, surveillance imaging follow-up in 4-6 months, with MRI Abdomen, may be ob tained for confirmation of stability. Urologic consultation as an appropriate clinical follow-up is a lso recommended. Additional details as described above.
--- NOTE | 2019-06-16 08:47 | ULT ---
PRELIMINARY REPORT/[facility]/EMERGENCY AFTER HOURS PROCEDURE: EXAM: US Abdomen Limited, Right Upper Quadrant EXAM DATE/TIME: 06/16/2019 4:40 AM CLINICAL HISTORY: 39 years old, female; Fever and nausea and vomiting and other: Diarrhea; Abdominal pain; Localized; R ight upper quadrant (ruq); Additional info: Please compare to previous CT TECHNIQUE: Imaging protocol: Real-time ultrasound of the abdomen with image documentation. Examination was focus ed on the right upper quadrant. COMPARISON: CT Abdomen Pelvis W Con 06/16/2019 1:52 AM FINDINGS: Liver: Liver is enlarged. There is a diffuse increase in hepatic parenchymal echogenicity, consistent with fatty infiltration. No masses. Gallbladder: Inspisated bile layers in the gallbladder lumen. No gallstones. There is no gallbladder wall thickening. Sonographic Dunbar's sign is reportedly negative. Common bile duct: No stones. No dilation. Pancreas: Visualized pancreas is unremarkable. Right kidney: 8.1 x 5.2 x 8.1 cm echogenic mass is best chracaterized on recent CT. No hydronephrosis . IMPRESSION: 8.1 x 5.2 x 8.1 cm echogenic mass is best chracaterized on recent CT. Thank you for allowing us to participate in the care of your patient. Dictated and Authenticated by: Kaylie Montez MD 06/16/2019 5:25 AM Central Time (US & En) FINAL REPORT GALLBLADDER ULTRASOUND: FINDINGS/IMPRESSION: Final report is in agreement with the preliminary report provided above. Incidental note of a mass of the inferior right renal region correlating to CT exam performed earlier same day. Reference CT report for further details. Gallbladder sludge, without acute gallbladder pathology identified.
[2019-06-16] MEDS ORDERED: ISOVUE-370 76%-LOCM 1 ML ONE (12:43)
== END 2019-06-16 06:11 | disposition home or self-care (01) ==
LOC: ERS 23:12
DX: R10.11 Right upper quadrant pain (principal); E87.6 Hypokalemia; I10 Essential (primary) hypertension; J45.909 Unspecified asthma, uncomplicated; G43.909 Migraine, unspecified, not intractable, without status migrainosus; F41.9 Anxiety disorder, unspecified; Z79.899 Other long term (current) drug therapy; Z86.718 Personal history of other venous thrombosis and embolism; Z79.51 Long term (current) use of inhaled steroids
CPT/HCPCS: 36415; 74177; 76705; 80053; 81003; 81015; 81025; 83690; 85025; 96372; 96374; 96375; J0500; J2270; J2405

== ENCOUNTER 2019-07-04 22:40 | Emergency (ER) | payer MEDICARE, MEDICAID ==
[2019-07-04] MEDS ORDERED: Ketorolac Tromethamine 30 MG/ML VIAL ONE (23:47)
[2019-07-04 23:54] LABS: Bilirubin Negative (Negative); Blood, Urine Negative (Negative); Clarity Clear (Clear); Glucose, Urine (Dipstick) Normal (Negative); Leukocyte Negative Leu/uL (Negative); Nitrite Negative (Negative); Protein, Urine (Dipstick) Negative (Neg-Trace); Urobilinogen Normal mg/dL (Less than 2)
== END 2019-07-05 00:40 | disposition home or self-care (01) ==
LOC: ERS 22:40
DX: R10.31 Right lower quadrant pain (principal); R10.32 Left lower quadrant pain; I10 Essential (primary) hypertension; J45.909 Unspecified asthma, uncomplicated; G43.909 Migraine, unspecified, not intractable, without status migrainosus; F41.9 Anxiety disorder, unspecified; Z79.899 Other long term (current) drug therapy; Z79.51 Long term (current) use of inhaled steroids; Z86.711 Personal history of pulmonary embolism
CPT/HCPCS: 81003; 96372; 99284; J1885

== ENCOUNTER 2019-11-21 17:50 | Observation (INO) | payer MEDICARE, MEDICAID ==
--- NOTE | 2019-11-21 18:29 | RAD ---
PA AND LATERAL CHEST: 11/21/19 HISTORY: Chest pain. COMPARISON: A 06/13/18 study. Heart size and mediastinum are within normal limits. There is blunting to the left costophrenic angle and posterior sulcus suggesting a small effusion with atelectasis. IMPRESSION: Small left pleural effusion with some atelectatic lung change. POS: [facility]
[2019-11-21 18:33] LABS: #Basophils 0.1 thou/uL (0.0-0.2); #Eosinphils 0.3 thou/uL (0.0-0.7); #Lymphocytes 3.1 thou/uL (1.20-3.40); #Monocytes 0.5 thou/uL (0.11-0.59); #Neutrophils 5.7 thou/uL (1.40-6.50); %Basophils 0.9 % (0.0-1.0); %Eosinophils 3.5 % (0.0-10.0); %Lymphocytes 31.5 % (21.0-51.0); %Neutrophils 59.1 % (42.0-75.0); Hemoglobin 13.4 g/dL (12.0-16.0); Mean Corpuscular HGB CONC 33.5 g/dL (32.0-36.0); Mean Corpuscular Hemoglobin 30.8 pg (27.0-31.0); Mean Corpuscular Volume 92.1 fL (78.0-98.0); Mean Platelet Volume 6.6 fL (7.4-10.4); Platelet Count 614 thou/uL (130-400); Red Blood Cell (RBC) Count 4.36 mill/uL (4.20-5.40); White Blood Cell (WBC) Count 9.7 thou/uL (4.8-10.8)
[2019-11-21 18:57] LABS: ALT (SGPT) 25 U/L (8-55); AST (SGOT) 29 U/L (5-34); Albumin 4.3 g/dL (3.5-5.0); Alkaline Phosphatase 100 U/L (40-110); Anion Gap 15 mmol/L (10-20); BUN (Urea Nitrogen) 7 mg/dL (7.0-18.7); Bilirubin, Total 0.5 mg/dL (0.2-1.2); Calc. Creatinine Clearance 0 mL/min (70-130); Calcium 9.6 mg/dL (7.8-10.44); Carbon Dioxide 27 mmol/L (22-29); Chloride 103 mmol/L (98-107); Estimated GFR-MDRD 90; Globulin 3.6 g/dL (2.4-3.5); Glucose 117 mg/dL (70-105); Potassium 4.9 mmol/L (3.5-5.1); Protein, Total 7.9 g/dL (6.0-8.3); Sodium 140 mmol/L (136-145)
[2019-11-21] MEDS ORDERED: Aspirin Chewable 81 MG TAB ONE (19:59)
[2019-11-21] MEDS ORDERED: Nitroglycerin 2% Ointment 1 INCH/1 GM Packet ONE (19:59)
[2019-11-21 21:57] LABS: Troponin I Less than 0.010 ng/mL (< 0.028)
--- NOTE | 2019-11-21 22:44 | PDOC.FPRHP ---
- History of Present Illness Chief Complaint: chest pain History of Present Illness: 39yo AAF with h/o recurrent PE with IVC filter and on lovenox, Asthma, HTN, and EMY presents for chest pain. Pt states sxs began 1 month ago with LUE squeezing pain, this then progressive to include chest pressure/tightness, and and how progressed to include the RUE. Associated with neck muscle spasms, nausea without vomiting, and dyspnea. Worse with lying down. Relieved partially with nitro paste. Non exertional. Does endorse 3pillow orthopnea, up from 1 pillow a month ago as well as PND nightly. Pain is always present but has undulating worse with worse and better episodes. Mild dry cough. No recent illness, fever, chills, abd pain, diaphoresis. Had stress test Jun 2018 that was WNL but has not had any cardiac workup since per pt. Pt does note that she has missed 3 days of her lovenox dose due to travel but usually takes regularly without missing doses. Pain is not pleuritic in nature. ED Course: Given ASA, nitro, 500cc NS bolus. - Allergies/Adverse Reactions Allergies Allergy/AdvReac Type Severity Reaction Status Date / Time Penicillins Allergy Anaphylaxis Verified 11/21/19 23:10 - Home Medications Medication Instructions Recorded Confirmed Type Albuterol Sulfate [Proair HFA] 2 puff INH Q4HR PRN 06/14/18 11/21/19 History Enoxaparin Sodium 150 mg SC BID 06/14/18 11/21/19 History Citalopram [CeleXA] 20 mg PO DAILY 11/21/19 11/21/19 History Diltiazem HCl [Diltiazem 24Hr Cd] 180 mg PO DAILY 11/21/19 11/21/19 History OLANZapine [ZyPREXA] 15 mg PO HS 11/21/19 11/21/19 History - History PMHx: HTN, mild intermittent asthma, PE and DVT, MDD with psychosis, PTSD, EMY PSHx: IVF filter, hyst for fibroids FHx: DVT, PE. Parents and uncle with h/o [place] and CAD. Social: No drugs, EtOH, tob. - Review of Systems General: denies: fever/chills, weight/appetite/sleep changes, night sweats, fatigue Eyes: denies: vision changes ENT: denies: nasal congestion, rhinorrhea Respiratory: reports: cough, shortness of breath, exercise intolerance. denies : congestion Cardiovascular: reports: chest pain, palpitation, paroxysmal nocturnal dyspnea, orthopnea. denies: edema Gastrointestinal: reports: nausea. denies: vomiting, diarrhea, constipation, abdominal pain Genitourinary: denies: incontinence, dysuria Skin: denies: rashes Neurological: denies: numbness - Vital signs BP: 154/115 HR: 80 RR: 18 Tmax: 99 Pox: 98% on RA Wt: 151kg - Physical Exam Constitutional: NAD, awake, alert and oriented, well developed, other (obese, polite, good spirits) HEENT: PERRLA, EOMI, conjunctiva clear, MMM, oropharynx clear Neck: supple, trachea midline Chest: other (pain reproducible with palpation of chest) Heart: RRR, normal S1/S2, pulses present, no edema, other (3/6 ROSE) Lungs: CTAB, no respiratory distress, good air movement, no rales/rhonchi, no wheezing Abdomen: soft, non-tender Musculoskeletal: normal structure, normal tone Neurological: no focal deficit, normal sensation Skin: no rash/lesions Psychiatric: normal mood and affect, good judgment and insight, intact recent and remote memory FMR H&P: Results - Labs Result Diagrams: 11/21/19 18:25 11/21/19 18:25 Lab results: WBC 9.7 thou/uL (4.8-10.8) 11/21/19 18:25 Hgb 13.4 g/dL (12.0-16.0) 11/21/19 18:25 Hct 40.2 % (36.0-47.0) 11/21/19 18:25 MCV 92.1 fL (78.0-98.0) 11/21/19 18:25 Plt Count 614 thou/uL (130-400) H 11/21/19 18:25 Neutrophils % 59.1 % (42.0-75.0) 11/21/19 18:25 Sodium 140 mmol/L (136-145) 11/21/19 18:25 Potassium 4.9 mmol/L (3.5-5.1) 11/21/19 18:25 Chloride 103 mmol/L (98-107) 11/21/19 18:25 Carbon Dioxide 27 mmol/L (22-29) 11/21/19 18:25 BUN 7 mg/dL (7.0-18.7) 11/21/19 18:25 Creatinine 0.85 mg/dL (0.6-1.1) 11/21/19 18:25 Glucose 117 mg/dL (70-105) H 11/21/19 18:25 Calcium 9.6 mg/dL (7.8-10.44) 11/21/19 18:25 Total Bilirubin 0.5 mg/dL (0.2-1.2) 11/21/19 18:25 AST 29 U/L (5-34) 11/21/19 18:25 ALT 25 U/L (8-55) 11/21/19 18:25 Alkaline Phosphatase 100 U/L (40-110) 11/21/19 18:25 Serum Total Protein 7.9 g/dL (6.0-8.3) 11/21/19 18:25 Albumin 4.3 g/dL (3.5-5.0) 11/21/19 18:25 - EKG Interpretation EKG: NSR, normal axis, normal intervals, no ST or T wave changes. FMR H&P: A/P - Problem List (1) Atypical chest pain Current Visit: Yes Status: Acute Code(s): R07.89 - OTHER CHEST PAIN (2) HTN (hypertension) Current Visit: Yes Status: Chronic Code(s): I10 - ESSENTIAL (PRIMARY) HYPERTENSION (3) Mild intermittent asthma Current Visit: Yes Status: Chronic Code(s): J45.20 - MILD INTERMITTENT ASTHMA, UNCOMPLICATED (4) Pulmonary embolism Current Visit: Yes Status: Chronic Code(s): I26.99 - OTHER PULMONARY EMBOLISM WITHOUT ACUTE COR PULMONALE (5) DVT (deep venous thrombosis) Current Visit: Yes Status: Chronic Code(s): I82.409 - ACUTE EMBOLISM AND THOMBOS UNSP DEEP VN UNSP LOWER EXTREMITY - Plan 39yo AAF with h/o PE/DVT, asthma, HTN presents for atypical CP. #Atypical CP - suspect MSK as reproducible, associated muscle spasms, subacute timing - flexeril x1 dose to see if improve sxs - Trop neg x2 and EKG NSR without acute changes, will trend trop x3 total and monitor on tele - also complaints of bloating and epigastric pain, will given GI cocktail and Pepcid BID and monitor sxs - Heart score 2 - Stress 06/14/18 WNL - With cardiac risk factors and strong family history, will plan for AM NM stress - 3/6 ROSE, PND and Orthopnea - will check BNP and plan for Echo in AM - Known to Dr. Myers, will try to obtain records - will risk stratify with A1C, TSH, Lipid Panel #H/o PE/DVT - missed 3 days of lovenox, has IVC filter - likely chronically elevated D-dimer - Wells score of 1.5 - Will order CTA and restart home Lovenox 150mg BID #Mild Intermittent Asthma - no acute exacerbation, cont home nebs prn #HTN - cont home diltiazem #MDD/PTSD - cont home zyprexa and celexa #EMY - CPAP at night PCP: LUCY Jose Code: Full IVF: SL Diet: NPO at MN VTE: Th Lovenox Disposition/LOS: Admit to tele obs for ACS r/o. Stress and Echo in AM. Anticipate LOS <48hrs. FMR H&P: Upper Level - Pertinent history 39 year old AA female presents with a one month history of chest pain. Patient states pain starts in left arm and goes across the top of her chest to her right arm. Patient states that the pain has worsened in intensity. She states she has a high pain tolerance and the pain is now persistent and rated as a 10/ 10 which is what prompted her visit to the ED tonzak. Patient states that the pain is a "heavy" feeling. It is associated with shortness of breath. Patient states she is also having a belching feeling. She states she feels tired with the pain. She has not done any significant lifting. In fact, she has been mostly staying at home not doing much work. She states she has not even been cooking because it has been painful. Patient endorses belching. She states nothing she has tried at home for pain has worked, including tylenol. Patient states pain did not improve much with ASA and nitro. Patient had stress test done in 2018 which was normal. Patient has extensive personal and family history of DVT's and PE's. Patient states that she has failed all oral anticoagulants, so she has been having to take BID lovenox. She states that she did recently travel to [place] and forgot her medication. She is normally compliant with medication but missed approximately 3-4 doses of lovenox while out on her trip. - Pertinent findings General: Alert and oriented x3. No acute distress. HEENT: MMM. Card: 11/09 ROSE. RRR. Resp: CTA bilaterally, although breath sounds difficult to appreciate due to body habitus. Abd: Soft, non-tender, obese Skin: No rashes or lesions Ext: No edema or cyanosis - Plan Date/Time: 11/21/192243 I, Shabana Bartholomew, have evaluated this patient and agree with findings/plan as outlined by graphic design intern resident. Pertinent changes/additions are listed here. Atypical chest pain, suspect MSK - Heart score 2 for risk factors - Stress test in 2018 which was normal - Will make NPO at midnight and plan for stress in AM - Pain reproducible on exam with palpation of left/right arm and upper chest bilaterally. Suspect MSK. Can give dose of flexiril and see if pain improves. Patient also with belching. Will give antacid and GI cocktail. - Nitro PRN - ASA daily - Consider adding statin, BB, PASCUAL-I if indicated based on studies and labs - Will obtain echo as patient did have heart murmur not previously documented - Will order CTA chest due to extensive history of PE's. Patient has missed several doses of therapeutic lovenox and has had PE's despite IVC filter. While this may not change booth attendant extensively, it may help to determine cause of pain and help better assess potential for heart strain. Systolic ejection murmur - Not previously documented - Will obtain echo HTN - Continue home medications Hx of PE and DVT's - Has been off of lovenox for 3 days and recent travel to [place]; will obtain CTA to rule out PE - Patient does have IVC filter in place but has reportedly still had PE's and DVT's - Will start back on therapeutic lovenox - Patient sees Dr. Glass with heme. She has failed oral anticoagulation, thus she is on lovenox BID. - Can try to obtain records from Dr. Glass's office to see if patient has had workup for coagulopathy in the past; I suspect she has given her extensive personal and family history. MDD w/ history of psychosis - Continue home medications EMY - Continue CPAP at night DVT PPX: Therapeutic lovenox GI PPX: Pepcid Code Status: Full code Dispo: Obs on telemetry. Anticipate LOS <48 hours.
[2019-11-21] MEDS ORDERED: ENOXAPARIN SODIUM SC SCH (22:47)
[2019-11-21] MEDS ORDERED: Calcium Carbonate 500 MG ChewTAB PO PRN (22:47)
[2019-11-21] MEDS ORDERED: Acetaminophen 325 MG TAB PO PRN (22:47)
[2019-11-21] MEDS ORDERED: PROVENTIL INHALER 6.7 G (200 INHALATIONS) INH PRN (22:47)
[2019-11-21] MEDS ORDERED: Cyclobenzaprine 10 MG TAB PO SCH (22:47)
[2019-11-21] MEDS ORDERED: Ondansetron ODT 4 MG TAB PO PRN (22:47)
[2019-11-21] MEDS ORDERED: Ondansetron PF 4 MG/2 ML Vial IVP PRN (22:47)
[2019-11-21] MEDS ORDERED: Nitroglycerin 0.4 MG TAB (25 Tab Bottle) SL PRN (22:47)
[2019-11-21 23:10] LABS: Hemoglobin A1c 6.1 % (4.0-6.0)
[2019-11-21] MEDS ORDERED: Enoxaparin Sodium 30 MG/0.3 ML SYRINGE SC SCH (23:15)
[2019-11-21] MEDS ORDERED: Enoxaparin Sodium 120 MG/0.8 ML SYRINGE SC SCH (23:15)
[2019-11-21 23:44] VITALS: BMI 53.8
[2019-11-22] MEDS ORDERED: Lidocaine 2% Viscous Solution 10 ML, Aluminum & Magnesium Hydroxide 30 ML SSW SCH (00:15)
[2019-11-22] MEDS ORDERED: OLANZapine 5 MG TAB PO SCH ×3 (00:30→21:00)
[2019-11-22 01:02] LABS: Troponin I Less than 0.010 ng/mL (< 0.028)
[2019-11-22 05:34] LABS: Cardiac Risk 8.3 (Less than 4.5)
--- NOTE | 2019-11-22 06:57 | PDOC.FM ---
- Subjective Subjective: pt sleeping comfortably in bed, reports chest pain still present, mild sob. - Objective Vital Signs & Weight: Vital Signs (12 hours) Temp Pulse Resp BP Pulse Ox 11/22/19 02:29 102 H 20 120/66 94 L 11/22/19 00:55 96 11/21/19 22:43 97.8 F 87 17 132/70 97 Weight Weight 151.273 kg I&O: 11/20/19 11/21/19 11/22/19 06:59 06:59 06:59 Intake Total 300 Output Total 500 Balance -200 Result Diagrams: 11/21/19 18:25 11/21/19 18:25 Phys Exam - Physical Examination Constitutional: NAD HEENT: moist MMs Respiratory: clear to auscultation bilateral Cardiovascular: RRR, no significant murmur Gastrointestinal: soft Musculoskeletal: pulses present Neurological: moves all 4 limbs Psychiatric: normal affect Skin: no rash Dx/Plan (1) Atypical chest pain Code(s): R07.89 - OTHER CHEST PAIN Status: Acute (2) DVT (deep venous thrombosis) Code(s): I82.409 - ACUTE EMBOLISM AND THOMBOS UNSP DEEP VN UNSP LOWER EXTREMITY Status: Chronic (3) HTN (hypertension) Code(s): I10 - ESSENTIAL (PRIMARY) HYPERTENSION Status: Chronic (4) Mild intermittent asthma Code(s): J45.20 - MILD INTERMITTENT ASTHMA, UNCOMPLICATED Status: Chronic (5) Pulmonary embolism Code(s): I26.99 - OTHER PULMONARY EMBOLISM WITHOUT ACUTE COR PULMONALE Status : Chronic - Plan Plan: Atypical CP - suspect MSK as reproducible, trop neg x3 and EKG NSR without acute changes - empiric flexeril/famotidine - stress today H/o PE/DVT - missed 3 days of lovenox, has IVC filter - likely chronically elevated D-dimer - CTA pending Mild Intermittent Asthma - no acute exacerbation, cont home nebs prn HTN - cont home diltiazem MDD/PTSD - cont home zyprexa and celexa EMY - CPAP at night PCP: LUCY Jose Code: Full IVF: SL Diet: NPO at MN VTE: Th Lovenox Disposition/LOS: stress today, potential DC with neg results Addendum - Attending - Attending Attestation Date/Time: 11/22/19 1038 I personally evaluated the patient and discussed the management with Dr. Cleary. I agree with the History, Examination, Assessment and Plan documented above with any addition or exceptions noted below. Patient with history of recurrent DVT/PE here with chest pain. CTA negative for PE. She is undergoing stress today and likely discharge home pending normal result.
--- NOTE | 2019-11-22 07:51 | CT ---
PRELIMINARY REPORT/[facility]/EMERGENCY AFTER HOURS PROCEDURE EXAM: CTA Chest with Intravenous Contrast CLINICAL HISTORY: F40, EVAL FOR PE. PATIENT COMPLAINS OF CHEST PAIN. HISTORY OF PE TECHNIQUE: Axial CTA images of the chest with intravenous contrast. MIP reconstructed images were created and re viewed. CONTRAST: With; ISOVUE 370,100mL COMPARISON: None provided. FINDINGS: PULMONARY ARTERIES There is no intraluminal filling defect suspicious for PE. AORTA No thoracic aortic aneurysm or dissection. LUNGS Streaky densities may represent mild atelectasis. This is most pronounced the left base. PLEURAL SPACES No pleural effusion. No pneumothorax. HEART AND MEDIASTINUM No cardiomegaly. No significant pericardial effusion. LYMPH NODES No lymphadenopathy. BONES No focal osseous abnormality or acute fracture. CHEST WALL AND UPPER ABDOMEN Images through the upper abdomen are unremarkable. The chest wall is unremarkable. IMPRESSION: No evidence of pulmonary embolism. ELECTRONICALLY SIGNED BY: Anuel Hinkle MD Nov 22, 2019 3:03:44 AM IMPLEMENTATION MANAGER This report is intended for review by the ordering physician only, in accordance of law. If you recei ve this report in error, please call [facility] at [phone]. FINAL REPORT EMERGENCY AFTER HOURS CT ANGIOGRAM THORAX WITH IV CONTRAST AND 3D RECONSTRUCTIONS: HISTORY: Chest pain. History of pulmonary embolus. Patient states missed anticoagulation doses. IMPRESSION: 1. There is suboptimal timing of the contrast bolus, but no filling defects are seen within the centr al or segmental pulmonary arteries to suggest a pulmonary embolus. Subsegmental pulmonary arteries are less well evaluated. 2. Thoracic aorta is normal in caliber without evidence of an aortic dissection. 3. Scattered linear atelectasis versus scarring at the left lung base. 4. No definite acute findings are seen on this CT angiogram of the thorax. Findings are in agreement with the preliminary report by [facility]. Code QA Transcribed Date/Time: 11/22/2019 7:56 AM
[2019-11-22] MEDS ORDERED: Aspirin 81 mg Enteric Coated Tablet PO SCH (09:00)
[2019-11-22] MEDS ORDERED: Citalopram 20 MG TAB PO SCH (09:00)
[2019-11-22] MEDS ORDERED: Famotidine 20 MG TAB PO SCH (09:00)
[2019-11-22] MEDS ORDERED: Enoxaparin Sodium 120 MG/0.8 ML SYRINGE SC SCH (09:00)
[2019-11-22] MEDS ORDERED: Enoxaparin Sodium 30 MG/0.3 ML SYRINGE SC SCH (09:00)
[2019-11-22] MEDS ORDERED: Regadenoson 0.4 MG/5 ML SYRINGE ONE (12:15)
--- NOTE | 2019-11-22 14:08 | NM ---
Stress only nuclear medicine myocardial perfusion scan: 11/22/2019 HISTORY: Atypical chest pain TECHNIQUE: SPECT imaging of the left ventricular myocardium obtained during stress following intraven ous demonstration of 27 mCi technetium 99m labeled sestamibi FINDINGS: No perfusion defect noted. Left ventricular wall motion appears normal. EDV is 144 mL and E SV is 47 mL. Left ventricular ejection fraction estimated at 67%. IMPRESSION: No perfusion defect seen on stress only imaging. Normal left ventricular wall motion with ejection fraction estimated at 67%.
[2019-11-22] MEDS ORDERED: Iopamidol-370 76% 500 ML 1 ML ONE (14:32)
[2019-11-22 16:00] VITALS: BP 149/70; TEMP 97.5
== END 2019-11-22 16:58 | disposition home or self-care (01) ==
LOC: ERS 17:50 → 2SW 20:15
PROVIDERS: ADMIT Family Medicine; ATTEND Family Medicine
DX: R07.89 Other chest pain (principal); J45.20 Mild intermittent asthma, uncomplicated; I10 Essential (primary) hypertension; F43.10 Post-traumatic stress disorder, unspecified; F32.3 Major depressive disorder, single episode, severe with psychotic features; F41.9 Anxiety disorder, unspecified; G47.33 Obstructive sleep apnea (adult) (pediatric); Z86.711 Personal history of pulmonary embolism; Z86.718 Personal history of other venous thrombosis and embolism; Z79.899 Other long term (current) drug therapy; Z88.0 Allergy status to penicillin
CPT/HCPCS: 71046; 71275; 78452; 80061; 83036; 83880; 84484 ×3; 93005; 93017; 94640; 96360; 96361; 99285; A9500; 36415; 80053; 84443; 85025; 96372; G0378; J1650; J2785; Q9967

== ENCOUNTER 2020-03-11 23:31 | Emergency (ER) | payer MEDICARE, MEDICAID ==
[2020-03-12 00:08] LABS: #Eosinphils 0.3 thou/uL (0.0-0.7); #Lymphocytes 4.1 thou/uL (1.20-3.40); #Monocytes 0.4 thou/uL (0.11-0.59); #Neutrophils 5.6 thou/uL (1.40-6.50); %Basophils 0.1 % (0.0-1.0); %Eosinophils 2.6 % (0.0-10.0); %Lymphocytes 39.4 % (21.0-51.0); %Monocytes 4.3 % (0.0-10.0); %Neutrophils 53.7 % (42.0-75.0); Hemoglobin 12.1 g/dL (12.0-16.0); Mean Corpuscular Hemoglobin 31.4 pg (27.0-31.0); Mean Corpuscular Volume 92.3 fL (78.0-98.0); Mean Platelet Volume 6.7 fL (7.4-10.4); Platelet Count 513 thou/uL (130-400); RBC Distribution Width 15.2 % (11.5-14.5); Red Blood Cell (RBC) Count 3.85 mill/uL (4.20-5.40); White Blood Cell (WBC) Count 10.4 thou/uL (4.8-10.8)
--- NOTE | 2020-03-12 00:15 | RAD ---
XR Chest 1 View Portable HISTORY: Chest pain, shortness of breath COMPARISON: 11/21/2019 FINDINGS: The heart size is normal. The lungs are well expanded without focal areas of consolidation, pneumothorax or pleural effusions. IMPRESSION: No radiographic evidence of acute cardiopulmonary process.
[2020-03-12 00:25] LABS: Glucose 204 mg/dL (70-105)
[2020-03-12 00:30] LABS: ALT (SGPT) 31 U/L (8-55); AST (SGOT) 32 U/L (5-34); Albumin 3.8 g/dL (3.5-5.0); Alkaline Phosphatase 89 U/L (40-110); Anion Gap 11 mmol/L (10-20); BUN (Urea Nitrogen) 4 mg/dL (7.0-18.7); Bilirubin, Total 0.4 mg/dL (0.2-1.2); Calc. Creatinine Clearance 0 mL/min (70-130); Calcium 9.3 mg/dL (7.8-10.44); Carbon Dioxide 29 mmol/L (22-29); Chloride 100 mmol/L (98-107); Estimated GFR-MDRD Greater than 90; Globulin 3.7 g/dL (2.4-3.5); Potassium 3.3 mmol/L (3.5-5.1); Protein, Total 7.5 g/dL (6.0-8.3); Sodium 137 mmol/L (136-145)
[2020-03-12 00:53] LABS: Bilirubin Negative (Negative); Blood, Urine Negative (Negative); Clarity Clear (Clear); Glucose, Urine (Dipstick) Normal (Negative); Leukocyte Negative Leu/uL (Negative); Nitrite Negative (Negative); Protein, Urine (Dipstick) Negative (Neg-Trace); Urobilinogen Normal mg/dL (Less than 2)
[2020-03-12] MEDS ORDERED: Ondansetron PF 4 MG/2 ML Vial ONE (02:28)
[2020-03-12] MEDS ORDERED: Morphine 4 MG/ML VIAL ONE (02:28)
== END 2020-03-12 03:13 | disposition home or self-care (01) ==
LOC: ERS 23:31
DX: R06.02 Shortness of breath (principal); R07.9 Chest pain, unspecified; R05 Cough; R11.0 Nausea; E66.9 Obesity, unspecified; F41.9 Anxiety disorder, unspecified; J45.909 Unspecified asthma, uncomplicated; G43.909 Migraine, unspecified, not intractable, without status migrainosus; I10 Essential (primary) hypertension; Z86.718 Personal history of other venous thrombosis and embolism; Z86.711 Personal history of pulmonary embolism; Z79.899 Other long term (current) drug therapy
CPT/HCPCS: 36415; 71045; 80053; 81003; 84484; 85025; 85379; 93005; 96374; 96375; J2270; J2405

== ENCOUNTER 2020-06-07 07:47 | Emergency (ER) | payer MEDICARE, MEDICAID, OTHER ==
[2020-06-07] MEDS ORDERED: Ketorolac Tromethamine 30 MG/ML VIAL ONE (08:16)
[2020-06-07] MEDS ORDERED: predniSONE 20 MG TAB ONE (08:17)
[2020-06-07 08:37] LABS: #Eosinphils 0.4 thou/uL (0.0-0.7); #Lymphocytes 2.8 thou/uL (1.20-3.40); #Monocytes 0.5 thou/uL (0.11-0.59); #Neutrophils 4.7 thou/uL (1.40-6.50); %Basophils 0.3 % (0.0-1.0); %Eosinophils 5.2 % (0.0-10.0); %Lymphocytes 33.4 % (21.0-51.0); %Monocytes 5.7 % (0.0-10.0); %Neutrophils 55.4 % (42.0-75.0); Hemoglobin 12.3 g/dL (12.0-16.0); Mean Corpuscular HGB CONC 32.9 g/dL (32.0-36.0); Mean Corpuscular Hemoglobin 31.6 pg (27.0-31.0); Mean Platelet Volume 6.9 fL (7.4-10.4); Platelet Count 470 thou/uL (130-400); RBC Distribution Width 15.5 % (11.5-14.5); Red Blood Cell (RBC) Count 3.88 mill/uL (4.20-5.40); White Blood Cell (WBC) Count 8.4 thou/uL (4.8-10.8)
[2020-06-07] MEDS ORDERED: Albuterol 200 PUFF (6.7GM INHALER) ONE (08:43)
--- NOTE | 2020-06-07 08:47 | RAD ---
CHEST 1 VIEW: Date: 06/07/2020 HISTORY: Cough and shortness of breath. COMPARISON: 03/11/2020. FINDINGS: Heart size upper limits of normal. The pulmonary arteries are mildly distended. No pneumothorax or ef fusion or focal air space consolidation. IMPRESSION: No acute intrathoracic abnormality. Similar exam. POS: [facility]
[2020-06-07 08:56] LABS: ALT (SGPT) 24 U/L (8-55); AST (SGOT) 25 U/L (5-34); Albumin 3.8 g/dL (3.5-5.0); Alkaline Phosphatase 81 U/L (40-110); Anion Gap 14 mmol/L (10-20); BUN (Urea Nitrogen) 6 mg/dL (7.0-18.7); Bilirubin, Total 0.5 mg/dL (0.2-1.2); Calc. Creatinine Clearance 0 mL/min (70-130); Calcium 9.1 mg/dL (7.8-10.44); Carbon Dioxide 31 mmol/L (22-29); Chloride 101 mmol/L (98-107); Estimated GFR-MDRD Greater than 90; Globulin 3.2 g/dL (2.4-3.5); Glucose 165 mg/dL (70-105); Potassium 3.5 mmol/L (3.5-5.1); Sodium 142 mmol/L (136-145)
[2020-06-07] MEDS ORDERED: Azithromycin 250 MG TAB ONE (10:24)
[2020-06-07 16:49] LABS: SARS-CoV-2 MS2 Positive; SARS-CoV-2 N Gene Negative; SARS-CoV-2 S Gene Negative; SARS-CoV-2 by NAA Not Detected (NotDetected); SARS-CoV-2 orf1ab Negative
== END 2020-06-07 10:40 | disposition home or self-care (01) ==
LOC: ERS 07:47
DX: J44.1 Chronic obstructive pulmonary disease with (acute) exacerbation (principal); I10 Essential (primary) hypertension; Z20.828 Contact with and (suspected) exposure to other viral communicable diseases; E11.9 Type 2 diabetes mellitus without complications; J45.909 Unspecified asthma, uncomplicated; G43.909 Migraine, unspecified, not intractable, without status migrainosus; Z86.718 Personal history of other venous thrombosis and embolism; F41.9 Anxiety disorder, unspecified; Z79.01 Long term (current) use of anticoagulants; Z79.84 Long term (current) use of oral hypoglycemic drugs; Z79.51 Long term (current) use of inhaled steroids; Z79.899 Other long term (current) drug therapy
CPT/HCPCS: 71045; 80053; 83880; 84484; 85025; 93005; 94664; U0003; 36415; 87635; 96372; 99406; J1885; J7512

== ENCOUNTER 2021-05-23 08:23 | Emergency (ER) | payer MEDICARE, MEDICAID | END 2021-05-23 10:02 | disposition home or self-care (01) | LOC: ERS 08:23 | DX: K04.7 Periapical abscess without sinus (principal); E11.9 Type 2 diabetes mellitus without complications; I10 Essential (primary) hypertension; G43.909 Migraine, unspecified, not intractable, without status migrainosus; J44.9 Chronic obstructive pulmonary disease, unspecified; Z86.711 Personal history of pulmonary embolism; Z86.718 Personal history of other venous thrombosis and embolism; Z79.899 Other long term (current) drug therapy | CPT/HCPCS: 99282 ==

== ENCOUNTER 2021-05-25 06:28 | Emergency (ER) | payer MEDICARE, OTHER, MEDICAID ==
[2021-05-25] MEDS ORDERED: Lidocaine 1% (PF) 30 ML VIAL ONE (06:48)
[2021-05-25] MEDS ORDERED: Bupivacaine 0.5% 10 ML VIAL ONE (07:32)
[2021-05-25] MEDS ORDERED: Ketorolac Tromethamine 30 MG/ML VIAL ONE (10:05)
== END 2021-05-25 10:11 | disposition home or self-care (01) ==
LOC: ERS 06:28
DX: R51.9 Headache, unspecified (principal); K08.89 Other specified disorders of teeth and supporting structures; E11.9 Type 2 diabetes mellitus without complications; I10 Essential (primary) hypertension; J44.9 Chronic obstructive pulmonary disease, unspecified; Z86.718 Personal history of other venous thrombosis and embolism; Z86.711 Personal history of pulmonary embolism; Z79.899 Other long term (current) drug therapy
CPT/HCPCS: 96372; 99283; J1885; J2001; J3490

== ENCOUNTER 2021-06-16 07:35 | Emergency (ER) | payer MEDICARE, OTHER ==
[2021-06-16] MEDS ORDERED: Ketorolac Tromethamine 30 MG/ML VIAL ONE (08:01)
== END 2021-06-16 08:10 | disposition home or self-care (01) ==
LOC: ERS 07:35
DX: M54.9 Dorsalgia, unspecified (principal); E11.9 Type 2 diabetes mellitus without complications; I10 Essential (primary) hypertension; J44.9 Chronic obstructive pulmonary disease, unspecified; Z86.711 Personal history of pulmonary embolism; Z86.718 Personal history of other venous thrombosis and embolism; Z87.891 Personal history of nicotine dependence
CPT/HCPCS: 96372; 99283; J1885

== ENCOUNTER 2022-02-11 00:17 | Emergency (ER) | payer MEDICARE, MEDICAID ==
[2022-02-11] MEDS ORDERED: Ibuprofen 800 MG TAB ONE (00:43)
[2022-02-11 12:19] LABS: SARS-CoV-2 PCR by NAA Not Detected (NotDetected)
== END 2022-02-11 00:57 | disposition home or self-care (01) ==
LOC: ERS 00:17
DX: J06.9 Acute upper respiratory infection, unspecified (principal); J44.9 Chronic obstructive pulmonary disease, unspecified; E11.9 Type 2 diabetes mellitus without complications; I10 Essential (primary) hypertension; Z86.73 Personal history of transient ischemic attack (TIA), and cerebral infarction without residual deficits; Z86.711 Personal history of pulmonary embolism; Z87.891 Personal history of nicotine dependence; Z20.822 Contact with and (suspected) exposure to COVID-19
CPT/HCPCS: 71045; 87804 ×2; U0003; U0005

== ENCOUNTER 2022-03-04 14:43 | Emergency (ER) | payer MEDICARE, MEDICAID | END 2022-03-04 16:58 | disposition left against medical advice (07) | LOC: ERS 14:43 | DX: Z53.21 Procedure and treatment not carried out due to patient leaving prior to being seen by health care provider (principal) ==

== ENCOUNTER 2022-06-23 17:29 | Emergency (ER) | payer MEDICARE, OTHER ==
[2022-06-23] MEDS ORDERED: Ketorolac Tromethamine 30 MG/ML VIAL ONE (18:55)
== END 2022-06-23 19:20 | disposition home or self-care (01) ==
LOC: ERS 17:29
DX: K04.7 Periapical abscess without sinus (principal); K02.9 Dental caries, unspecified; I10 Essential (primary) hypertension; E11.9 Type 2 diabetes mellitus without complications; J44.9 Chronic obstructive pulmonary disease, unspecified; Z86.711 Personal history of pulmonary embolism; Z86.718 Personal history of other venous thrombosis and embolism
CPT/HCPCS: 96372; 99283; J1885